=== PATIENT | female | born 2000 | race Caucasian/White ===

== ENCOUNTER 2021-05-24 08:00 | Outpatient (CLI) | payer BC, MEDICAID | END 2021-05-24 23:59 | disposition home or self-care (01) | LOC: LAB.N 08:00 | PROVIDERS: ATTEND Family Medicine | DX: R05.9 Cough, unspecified (principal); Z20.822 Contact with and (suspected) exposure to COVID-19 ==

== ENCOUNTER 2022-11-24 14:31 | Outpatient (CLI) | payer OTHER, MEDICAID | END 2022-11-24 14:32 | disposition critical access hospital (66) | LOC: EMS 14:31 | DX: S00.01XA Abrasion of scalp, initial encounter (principal); S51.812A Laceration without foreign body of left forearm, initial encounter; S51.811A Laceration without foreign body of right forearm, initial encounter; S61.412A Laceration without foreign body of left hand, initial encounter; S61.411A Laceration without foreign body of right hand, initial encounter; V49.40XA Driver injured in collision with unspecified motor vehicles in traffic accident, initial encounter; Y92.414 Local residential or business street as the place of occurrence of the external cause | CPT/HCPCS: A0425; A0429 ==

== ENCOUNTER 2022-11-24 14:53 | Emergency (ER) | payer OTHER, MEDICAID ==
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
[2022-11-24 15:14] VITALS: BP 139/88
== END 2022-11-24 15:23 | disposition home or self-care (01) ==
LOC: ED 14:53 → MERGE 14:53 → ED 15:23
DX: Z04.1 Encounter for examination and observation following transport accident (principal)
CPT/HCPCS: 99282; 99283